=== PATIENT | female | born 1965 | race Hispanic/Latino ===

== ENCOUNTER → 2019-02-10 | Day surgery (SDC) | payer OTHER ==
[~2019-02-10] MED LIST: ASPIRIN81 MG PO; DILTIAZEM HCL60 MG PO; FENTANYL CITRATE/PF 100MCG/2 ML INJ ONE; INTEGRA CAPSUL1 EACH PO; MIDAZOLAM HCL 2 MG/2 ML VIAL ONE; PROPOFOL IV EMULSION 10 MG/ML 50 ML VIAL ONE
--- OUTSIDE RECORDS SUMMARY | 2019-02-10 05:14 | XMS REPORT ---
Author Author [facility], [place] Address Unknown Phone Unavailable Care Team Providers Care Supervisor Packing Name Role Phone Unavailable Unavailable Problems This patient has no known problems. Allergies, Adverse Reactions, Alerts This patient has no known allergies or adverse reactions. Medications This patient has no known medications. Results Test Description Test Time Test Comments Text Results Atomic Results Result Comments SCR MAMM BILATERAL CAD DIGITAL 2018-09-04 11:27:33 - SCR MAMM BILATERAL CAD DIGITALBILATERAL DIGITAL SCREENING MAMMOGRAM WITH CAD: 09/03/2018CLINICAL: Asymptomatic. Current mammographic images were evaluated by either a Gu[employer]a M- Vu or a [employer] ImageChecker CAD (computer aided detection system). No prior exams were available for comparison. There are scattered fibroglandular tissues in both breasts. No suspicious mass, architectural distortion, malignant type calcification, or lymph node abnormality detected. IMPRESSION: NEGATIVEThere is no mammographic evidence of malignancy. Resume annual screening mammography in one year. Tania kerr/penrad:09/04/2018 11:27:33 Entry: - 09/05/2018 09:08:13Attending Technologist: Francisca Pickard MM, [facility] MammographyImaging Technologist: Zamzam Bryant MM, [facility] mmographyletter sent: BIRADS 1-2 Normal Mammogram BI-RADS: 1 Negative XR Chest 1 View Frontal 2018-03-15 04:47:38 Patient: HOANG FIGUEROA Date/Time03/15/2018 04:28 CDTReason for ExamChest painReportAFTER HOURS SERVICE ON: 03/15/2018 4:47 AMAP Portable ChestLocation Code [id number]: Chest painFINDINGS:There are no infiltrates. There are no pleural effusions. There is no pneumothorax. Cardiac silhouette and mediastinum appear within normal limits.IMPRESSION:No active intrathoracic findings. Final Dictated by: MD Estelle, Lacy TDictated DT/TM: 03/15/2018 4:47 amSigned by: MD Estelle, Lacy TSigned (Electronic Signature): 03/15/2018 4:47 am
[2019-02-10 08:39] VITALS: BP 124/73
== END | disposition home or self-care (01) ==
LOC: OR 05:10
PROVIDERS: ATTEND Internal Medicine Gastroenterology
DX: Z12.11 Encounter for screening for malignant neoplasm of colon (principal); D50.9 Iron deficiency anemia, unspecified; K21.0 Gastro-esophageal reflux disease with esophagitis; Z98.84 Bariatric surgery status; K57.30 Diverticulosis of large intestine without perforation or abscess without bleeding; I48.91 Unspecified atrial fibrillation; Z01.810 Encounter for preprocedural cardiovascular examination; Z79.82 Long term (current) use of aspirin; Z79.1 Long term (current) use of non-steroidal anti-inflammatories (NSAID)
CPT/HCPCS: 43239; 45378; 93005; J2250; J2704; J3010